=== PATIENT | male | born 1950 | race Caucasian/White ===

== ENCOUNTER → 2020-10-07 | Day surgery (SDC) | payer OTHER ==
[~2020-10-07] MED LIST: AREDS PO; GLUCOSAMIN-CHO1 EACH PO; LISINOPRIL20 MG PO; NORCO 5-325 TA1 EACH PO; ONDANSETRON ODT8 MG PO
[2020-10-07 08:05] LABS: HCT 43.8 % (42.0-52.0); HGB 13.5 g/dl (13.2-18.0); MCH 30.4 pg (25.0-31.0); MCHC 30.8 g/dL (32.0-36.0); MCV 98.6 fL (78.0-100.0); MPV 10.1 fL (6.0-9.5); RBC 4.44 M/uL (4.70-6.00); RDW 13.5 % (11.5-14.0)
[2020-10-07 08:17] LABS: ALBUMIN 3.5 g/dL (3.4-5.0); BILIRUBIN - TOTAL 0.6 mg/dL (0.2-1.0); BUN/CREAT RATIO (CALC) 14.9 RATIO; CREATININE 0.87 mg/dL (0.67-1.17); GLOBULIN (CALCULATION) 3.2 g/dL; POTASSIUM 4.1 mmol/L (3.5-5.1); TOTAL PROTEIN 6.7 g/dL (6.4-8.2)
== END | disposition home or self-care (01) ==
LOC: FAS 07:01
PROVIDERS: Surgery
DX: Z12.11 Encounter for screening for malignant neoplasm of colon (principal); K40.20 Bilateral inguinal hernia, without obstruction or gangrene, not specified as recurrent; I10 Essential (primary) hypertension; M19.90 Unspecified osteoarthritis, unspecified site; Z79.899 Other long term (current) drug therapy; Z82.49 Family history of ischemic heart disease and other diseases of the circulatory system; Z87.891 Personal history of nicotine dependence; Z20.822 Contact with and (suspected) exposure to COVID-19
CPT/HCPCS: 36415; 80053; J1610; J2250; J7120

== ENCOUNTER → 2020-10-24 | Day surgery (SDC) | payer OTHER | END | disposition home or self-care (01) | LOC: FAS 07:11 | DX: K40.20 Bilateral inguinal hernia, without obstruction or gangrene, not specified as recurrent (principal); K42.0 Umbilical hernia with obstruction, without gangrene; I10 Essential (primary) hypertension; Z87.891 Personal history of nicotine dependence; Z79.899 Other long term (current) drug therapy | CPT/HCPCS: C1781; J0690; J1100; J1170; J2250; J2405; J2704; J2710; J3010; J7120 ==